=== PATIENT | female | born 1975 | race Caucasian/White ===

== ENCOUNTER 2019-06-06 00:21 | Inpatient (IN) | payer MEDICAID ==
[~2019-06-06] VITALS: Ht 172.7 cm; Wt 83.9 kg
[2019-06-06] MEDS ORDERED: ONDANSETRON 4 MG/2 ML VIAL IV ONE (00:45)
[2019-06-06] MEDS ORDERED: CHARCOAL/SORBITOL SOLUTION 50 GM/240 ML BOTTLE PO ONE (00:45)
--- NOTE | 2019-06-06 00:55 | NUR ---
RECEIVED PT BIB RESCUE 100 VIA BRE (SEATED POSITION) FR HOME ABLE TO TRANSFER TO ER BRE PT IS CRYING BUT CALM. COMPLIANT BED AT LOWEST POSITION SIDERAILSX2 UP
[2019-06-06] MEDS ORDERED: ONDANSETRON 4 MG/2 ML VIAL ONE (01:05)
[2019-06-06] MEDS ORDERED: CHARCOAL/SORBITOL SOLUTION 50 GM/240 ML BOTTLE ONE (01:06)
--- NOTE | 2019-06-06 01:10 | NUR ---
PT ABLE TO TOLERATE NGT INSERTION TO R NOSTRIL BY SCIENTIFIC SPECIALIST +EMESIS(FOOD, SEMI FORMED CHYME) -HEMATEMESIS PT ABLE TO TOLERATE CHARCHOAL PO MED ASP PRECAUTION MONITORED ACCORDINGLY
[2019-06-06 01:15] LABS: CARBON DIOXIDE 27 mmol/L (21-32); CHLORIDE 105 mmol/L (98-107); GLUCOSE 117 mg/dL (74-106); POTASSIUM 3.3 mmol/L (3.5-5.1); UREA NITROGEN, BLOOD 13 mg/dL (7-18)
[2019-06-06 01:23] LABS: BASOPHILS % (AUTO) 0.4 % (0.0-2.0); EOSINOPHILS # (AUTO) 0.1 K/uL (0.0-0.7); EOSINOPHILS % (AUTO) 0.7 % (0.0-7.0); HEMATOCRIT 41.7 % (31.2-41.9); LYMPHOCYTES # (AUTO) 1.3 K/uL (20.0-40.0); LYMPHOCYTES % (AUTO) 16.5 % (20.5-51.5); MEAN CORPUSCULAR HEMOGLOBIN 31.1 uug (24.7-32.8); MEAN CORPUSCULAR HGB CONC 34 g/dL (32.3-35.6); MEAN CORPUSCULAR VOLUME 92.3 fL (75.5-95.3); MONOCYTES # (AUTO) 0.6 K/uL (2.0-10.0); MONOCYTES % (AUTO) 6.8 % (0.0-11.0); NEUTROPHILS # (AUTO) 6.1 K/uL (1.8-8.9); NEUTROPHILS % (AUTO) 75.6 % (38.5-71.5); PLATELET COUNT (AUTO) 272 K/uL (179-408); RED BLOOD CELL COUNT(AUTO) 4.51 MIL/uL (3.63-4.92); WHITE BLOOD COUNT (AUTO) 8.1 K/uL (3.8-11.8)
[2019-06-06 01:29] LABS: ALANINE AMINOTRANSFERASE 48 U/L (14-59); ALKALINE PHOSPHATASE 103 U/L (50-136); ASPARTATE AMINOTRANSFERASE 36 U/L (15-37); BILIRUBIN,DIRECT 0.1 mg/dL (0.0-0.2); BILIRUBIN,TOTAL 0.6 mg/dL (0.2-1.0); TOTAL PROTEIN, SERUM 7.9 g/dL (6.4-8.2)
[2019-06-06 02:12] LABS: ETHANOL < 3 MG/DL (0-0)
--- NOTE | 2019-06-06 03:21 | NUR ---
PT ASLEEP BUT EASILY ROUSABLE SUPINE, WITH COLD COMPRESS ON HEAD SIDERAILSX2 UP BED AT LOWEST POSITION MONITORED ACCORDINGLY
--- NOTE | 2019-06-06 04:10 | NUR ---
RESTAURANT ATTENDANT AT BEDSIDE FOR RPT BLD DRAW
[2019-06-06 05:02] LABS: ACETAMINOPHEN 33.3 ug/mL (10-30); BILIRUBIN,DIRECT 0.1 mg/dL (0.0-0.2); BILIRUBIN,TOTAL 0.6 mg/dL (0.2-1.0); TOTAL PROTEIN, SERUM 7.2 g/dL (6.4-8.2)
--- NOTE | 2019-06-06 05:20 | NUR ---
DERICD AWARE OF RPT LAB RESULTS AMBULATORY W/ STABLE GAIT PT ABLE TO VOID FREELY CALLED [employer] CORPORATE MANAGER FOR EVAL ETA:30MINS
--- NOTE | 2019-06-06 06:00 | NUR ---
EDUAR [employer]ER CIVIL ENGINEERING DRAFTER(CRISIS TEAM) ARRIVED FOR PSYCH EVAL PT IS AWAKE, ABLE TO AMBULATE TOWARDS RESTROOM AT BEDSIDE CURRENTLY DENIES SI/HI CONCERNS/PLANS MONITORED ACCORDINGLY
--- NOTE | 2019-06-06 06:09 | NUR ---
FLIGHT COMMUNICATIONS OFFICER ARRIVED. ADVANCED MANUFACTURING VICE PRESIDENT AT BEDSIDE FOR EVAL PT IS MEDICALLY CLEARED PER ERMD
[2019-06-06 06:24] LABS: *BILIRUBIN,URIN NEGATIVE (NEGATIVE); *BLOOD, URINE NEGATIVE (NEGATIVE); *CLARITY,URINE CLEAR (CLEAR); *COLOR,URINE YELLOW (YELLOW); *KETONES,URINE NEGATIVE (NEGATIVE); *UROBILINOGEN,URINE 0.2 E.U./dl (NORMAL); LEUKOCYTE ESTERASE ,URINE NEGATIVE (NEGATIVE); NITRITE, URINE NEGATIVE (NEGATIVE); PH,URINE 5.5 (5.0-8.0); UGLUCOSE NEGATIVE (NEGATIVE)
[2019-06-06 06:26] LABS: *AMPHETAMINE, URINE NEGATIVE (NEGATIVE); *BARBITURATE, URINE NEGATIVE (NEGATIVE); *CANNABINOID, URINE NEGATIVE (NEGATIVE); *COCCAINE, URINE NEGATIVE (NEGATIVE); *OPIATE, URINE NEGATIVE (NEGATIVE); *PHENCYCLIDINE SCREEN,URINE NEGATIVE (NEGATIVE)
[2019-06-06 06:34] LABS: BACTERIA,URINE NONE SEEN /HPF (NONE SEEN); RBC,URINE 0-3 /HPF (0-3); SQUAMOUS EPITHELIAL CELL,UR FEW /HPF (NONE SEEN); WBC,URINE 0-3 /HPF (0-3)
[2019-06-06 06:35] LABS: MUCUS,URINE MODERATE /LPF (0-FEW)
--- NOTE | 2019-06-06 06:56 | NUR ---
POISON CONTROL CALLED (JOHN): RECOMMENDS RPT LABS OF ACETAMINOPHEN AND LIVER FUNCTION TESTS ERMD AWARE
[2019-06-06] MEDS ORDERED: POTASSIUM CHLORIDE 20 MEQ TAB.PRT.SR PO ONE (07:00)
--- NOTE | 2019-06-06 07:05 | NUR ---
ABLE TO TOLERATE PO MEDS ORDERED
[2019-06-06] MEDS ORDERED: POTASSIUM CHLORIDE 20 MEQ TAB.PRT.SR ONE (07:06)
--- NOTE | 2019-06-06 07:16 | NUR ---
RECREATION DIRECTOR AT BEDSIDE HAND OFF AND SBAR GIVEN TO INCOMING DAYSHIFT RN R SYLVIA G20 SALINE LOCK INTACT MONITORED ACCORDINGLY
--- NOTE | 2019-06-06 07:30 | NUR ---
RECEIVED PATIENT THIS AM ALERT RESPONSIVE AMBULATORY AROUND UNIT TO BATHROOM GAIT STEADY.DENIES DISCOMFORT, ABLE TO MAKE HER NEEDS KNOWN AND FOLLOW DIRECTIONS.
[2019-06-06 07:34] LABS: ACETAMINOPHEN 22.4 ug/mL (10-30); BILIRUBIN,DIRECT 0.1 mg/dL (0.0-0.2); BILIRUBIN,TOTAL 0.8 mg/dL (0.2-1.0); POTASSIUM 3.1 mmol/L (3.5-5.1); TOTAL PROTEIN, SERUM 7.2 g/dL (6.4-8.2)
[2019-06-06] MEDS ORDERED: ACETYLCYSTEINE IV ONE ×2 (08:00→08:30)
[2019-06-06] MEDS ORDERED: DEXTROSE 5% IV ONE ×2 (08:00→08:30)
--- NOTE | 2019-06-06 09:13 | NUR ---
PATIENT BEING ADMITTED TO 322 REPORT CALLED TO DANIEL DIAS. PATIENT AWARE AND VERBALIZES UNDERSTANDING OF ADMIT TO HOSPITAL.RECEIVING IV MUCOMYST.
--- NOTE | 2019-06-06 09:30 | NUR ---
Admission Note: Admitted a 44 years old female patient from ED. Pt. is under the care of Brigido Warren NP who came with the following dx: acute tylenol OD, acute liver injury, and arthritis. Patient has no known allergies. Patient is full code per preference. Patient is A/Ox4 verbally responsive and able to make her needs known. No SOB or acute distress, on RA and tolerating well. Denies pain during assessment. All pt. needs attended and met promptly. Lungs sounds clear to auscultation. Initial skin assessment completed, skin intact. RAC PIV patent and intact. Pt. on a reg diet. WAREHOUSE ASSEMBLY WORKER aware of pt. admission. Kept pt. clean and dry. Safety measures in place. Call light and all frequently used items within pt. reach. Emphasize use of call light system, pt. verbalized clear understanding. Will endorse to oncoming shift accordingly.
[2019-06-06] MEDS ORDERED: MORPHINE SULFATE 2 MG/1 ML DISP.SYRIN IV PRN (11:00)
[2019-06-06] MEDS ORDERED: HYDROCODONE/APAP 5-325MG TABLET PO PRN (11:00)
[2019-06-06] MEDS ORDERED: MAGNESIUM HYDROXIDE 30 ML LIQUID UDC PO PRN (11:00)
[2019-06-06] MEDS ORDERED: ONDANSETRON 4 MG/2 ML VIAL IV PRN (11:00)
[2019-06-06 11:54] VITALS: BP 115/70
[2019-06-06] MEDS: IV 1/2NS 1000 ML 1,000 ML IV PRN (12:26)
[2019-06-06 15:58] VITALS: BP 136/81
[2019-06-06 16:30] LABS: ALANINE AMINOTRANSFERASE 61 U/L (14-59); ALKALINE PHOSPHATASE 81 U/L (50-136); ASPARTATE AMINOTRANSFERASE 42 U/L (15-37); BILIRUBIN,DIRECT 0.1 mg/dL (0.0-0.2); BILIRUBIN,TOTAL 0.8 mg/dL (0.2-1.0); CARBON DIOXIDE 25 mmol/L (21-32); CHLORIDE 107 mmol/L (98-107); GLUCOSE 102 mg/dL (74-106); POTASSIUM 3.5 mmol/L (3.5-5.1); TOTAL PROTEIN, SERUM 6.9 g/dL (6.4-8.2); UREA NITROGEN, BLOOD 14 mg/dL (7-18)
[2019-06-06 16:32] LABS: ACETAMINOPHEN < 2.0 ug/mL (10-30)
--- NOTE | 2019-06-06 18:37 | NUR ---
No significant change during this shift. Pt. kept clean, dry and comfortable. Pt. compliant with care. All pt. needs attended and met promptly. Safety measures and place. Frequent rounding performed. Will endorse to oncoming shift accordingly.
--- NOTE | 2019-06-06 19:30 | NUR ---
Received patient in bed, resting. Denies discomfort, or pain. No SOB noted. Sinus rhythm on tele. Safety precautions in place, call light within reach. Will continue to monitor.
[2019-06-06 19:46] VITALS: BP 97/33
[2019-06-07 00:24] VITALS: BP 91/49
[2019-06-07] MEDS: IV 1/2NS 1000 ML 1,000 ML IV PRN (02:13)
[2019-06-07 04:16] VITALS: BP 93/68
[2019-06-07 06:21] LABS: BASOPHILS % (AUTO) 0.6 % (0.0-2.0); EOSINOPHILS # (AUTO) 0.1 K/uL (0.0-0.7); EOSINOPHILS % (AUTO) 1.3 % (0.0-7.0); HEMATOCRIT 37.8 % (31.2-41.9); HEMOGLOBIN 12.9 g/dL (10.9-14.3); LYMPHOCYTES # (AUTO) 1.3 K/uL (20.0-40.0); MEAN CORPUSCULAR HEMOGLOBIN 31.1 uug (24.7-32.8); MEAN CORPUSCULAR HGB CONC 34 g/dL (32.3-35.6); MEAN CORPUSCULAR VOLUME 91.1 fL (75.5-95.3); MONOCYTES # (AUTO) 0.6 K/uL (2.0-10.0); MONOCYTES % (AUTO) 8.9 % (0.0-11.0); NEUTROPHILS # (AUTO) 4.4 K/uL (1.8-8.9); NEUTROPHILS % (AUTO) 69.2 % (38.5-71.5); PLATELET COUNT (AUTO) 234 K/uL (179-408); RED BLOOD CELL COUNT(AUTO) 4.14 MIL/uL (3.63-4.92); WHITE BLOOD COUNT (AUTO) 6.4 K/uL (3.8-11.8)
[2019-06-07 06:39] LABS: THYROID STIMULATING HORMONE 4.936 mIU/mL (0.358-3.740)
[2019-06-07 06:40] LABS: ALANINE AMINOTRANSFERASE 54 U/L (14-59); ALKALINE PHOSPHATASE 84 U/L (50-136); ASPARTATE AMINOTRANSFERASE 35 U/L (15-37); BILIRUBIN,DIRECT 0.1 mg/dL (0.0-0.2); CARBON DIOXIDE 26 mmol/L (21-32); CHLORIDE 104 mmol/L (98-107); CHOLESTEROL 211 mg/dL (<200); GLUCOSE 93 mg/dL (74-106); HDL CHOLESTEROL 32 mg/dL (40-60); MAGNESIUM 1.7 mg/dL (1.8-2.4); PHOSPHOROUS 3.5 mg/dL (2.5-4.9); POTASSIUM 3.6 mmol/L (3.5-5.1); TOTAL PROTEIN, SERUM 6.9 g/dL (6.4-8.2); TRIGLYCERIDES 217 MG/DL (30-150); UREA NITROGEN, BLOOD 13 mg/dL (7-18)
--- NOTE | 2019-06-07 06:44 | NUR ---
Patient slept throughout the night. Woken up several times upon entering the room. No acute change in condition. Patient states her BP normally runs a little low. Vitals within normal. Denies discomfort or pain at this time. No respiratory distress. Sinus nimisha on tele monitor Will endorse care to oncoming shift.
[2019-06-07 07:13] LABS: ACETAMINOPHEN < 2.0 ug/mL (10-30)
--- NOTE | 2019-06-07 08:00 | NUR ---
Received patient awake in bed. AAOx4. Mainly Yakut speaking but able to verbalize basic needs in Marshallese. No s/s of acute distress. No SOB noted. Safety measures implemented. Call light within reach. Will continue to monitor.
[2019-06-07] MEDS ORDERED: ATOR10TA PO (10:43)
[2019-06-07 11:45] VITALS: BP 128/86
[2019-06-07] MEDS ORDERED: MAGNESIUM OXIDE 400 MG TABLET PO ONE (12:15)
[2019-06-07 15:59] VITALS: BP 110/87
--- NOTE | 2019-06-07 18:25 | NUR ---
Discharge orders in place. Vital signs WNL. No s/s of acute distress. Exit care provided and education provided regarding new prescription. ID band and IV access removed. Discharged to home.
[2019-06-07] MEDS ORDERED: ALBUMIN HUMAN 25% 50 ML ONE (23:43)
== END 2019-06-07 18:30 | disposition home or self-care (01) | DRG 817 ==
LOC: ER 00:26 → TELE3 09:23
PROVIDERS: ADMIT Nurse Practitioner Acute Care; ATTEND Nurse Practitioner Acute Care
DX: T39.1X2A Poisoning by 4-Aminophenol derivatives, intentional self-harm, initial encounter (principal); K71.8 Toxic liver disease with other disorders of liver; E44.1 Mild protein-calorie malnutrition; T39.392A Poisoning by other nonsteroidal anti-inflammatory drugs [NSAID], intentional self-harm, initial encounter; E87.6 Hypokalemia; Y92.039 Unspecified place in apartment as the place of occurrence of the external cause; Z68.28 Body mass index [BMI] 28.0-28.9, adult; R73.9 Hyperglycemia, unspecified; F32.9 Major depressive disorder, single episode, unspecified
CPT/HCPCS: 36415; 80307; 83735; 84100; 84443; 85025; 93005; A4663; G0378; G0480; G0480-TC; J0132; J2405; J3490; J7060; P9047